=== PATIENT | male | born 1955 | race Caucasian/White ===

== ENCOUNTER 2017-12-16 08:21 | Inpatient (IN) | payer BC ==
[~2017-12-16] VITALS: Ht 177.8 cm; Wt 119.2 kg
[~2017-12-16 08:21] MED LIST: BACITRACIN 50,000 UNIT ONE; BUPIVACAINE/PF 0.5% ONE; EPINEPHRINE 1 MG/ML, 1ML ONE; THROMBIN 5,000 UNIT VIAL TP ONE
[2017-12-16 09:26] VITALS: BP 124/78
[2017-12-16] MEDS ORDERED: LACTATED RINGERS 1,000 ML IV SCH (09:30)
[2017-12-16] MEDS ORDERED: ESCI10TA10 PO (09:31)
[2017-12-16] MEDS ORDERED: FLONASE NAS (09:31)
[2017-12-16] MEDS ORDERED: MULTIVITAMIN PO (09:31)
[2017-12-16] MEDS ORDERED: METF500T4 PO (09:56)
[2017-12-16] MEDS ORDERED: FENTANYL PF 250 MCG/5ML ONE (10:09)
[2017-12-16] MEDS ORDERED: MIDAZOLAM 1 MG/ML, 2ML ONE (10:09)
[2017-12-16] MEDS ORDERED: OxyconTIN ER 20 MG TAB.ER ONE (10:09)
[2017-12-16] MEDS ORDERED: ONDANSETRON ODT 8 MG ONE (10:09)
[2017-12-16] MEDS ORDERED: GABAPENTIN 300 MG CAPSULE ONE (10:10)
[2017-12-16] MEDS ORDERED: ACETAMINOPHEN 500 MG TABLET ONE (10:10)
[2017-12-16] MEDS ORDERED: PROPOFOL 10 MG/ML, 20ML ONE (10:10)
[2017-12-16] MEDS ORDERED: WATER-INJECTION,STERILE 10 ML IV ONE (10:11)
[2017-12-16] MEDS ORDERED: CEFAZOLIN 1,000 MG ONE ×2 (10:11)
[2017-12-16] MEDS ORDERED: ACETAMINOPHEN 500 MG TABLET PO ONE (10:30)
[2017-12-16] MEDS ORDERED: OxyconTIN ER 20 MG TAB.ER PO ONE (10:30)
[2017-12-16] MEDS ORDERED: GABAPENTIN 300 MG CAPSULE PO ONE (10:30)
[2017-12-16] MEDS ORDERED: ONDANSETRON ODT 8 MG PO ONE (10:30)
[2017-12-16] MEDS ORDERED: ROCURONIUM 10MG/ML,5ML ONE (10:59)
[2017-12-16] MEDS ORDERED: DEXAMETHASONE 4 MG/ML, 1ML ONE ×2 (11:12)
[2017-12-16] MEDS ORDERED: PHENYLEPHRINE 10 MG/ML ONE (11:55)
[2017-12-16] MEDS ORDERED: OXYcodone 5 MG/5 ML ORAL.SOL UDC PO PRN (12:00)
[2017-12-16] MEDS ORDERED: hydrALAzine 20 MG/ML, 1ML IV PRN (12:00)
[2017-12-16] MEDS ORDERED: LABETALOL 5MG/ML, 20ML IV PRN ×2 (12:00→16:00)
[2017-12-16] MEDS ORDERED: morphine SULFATE 10 MG/ML, 1ML IV PRN ×2 (12:00→16:00)
[2017-12-16] MEDS ORDERED: PROMETHAZINE 25 MG/ML, 1ML IV PRN (12:00)
[2017-12-16] MEDS ORDERED: MEPERIDINE/PF 25MG/0.5ML IVPush PRN (12:00)
[2017-12-16] MEDS ORDERED: FENTANYL PF 100 MCG/2ML IV PRN (12:00)
[2017-12-16] MEDS ORDERED: MINERAL OIL 10 ML VIAL MC ONE (12:34)
[2017-12-16] MEDS ORDERED: METOCLOPRAMIDE 5 MG/ML, 2ML ONE (13:42)
[2017-12-16] MEDS ORDERED: HALOPERIDOL 5 MG/ML ONE (14:29)
[2017-12-16] MEDS ORDERED: ONDANSETRON 2MG/ML, 2ML IV PRN (16:00)
[2017-12-16] MEDS ORDERED: MAGNESIUM HYDROXIDE 8%, 30ML UDC PO PRN (16:00)
[2017-12-16] MEDS ORDERED: DIAZEPAM 5 MG/ML, 2ML IV PRN (16:00)
[2017-12-16] MEDS ORDERED: HYDROcodone/APAP 5/325 TABLET PO PRN (16:00)
[2017-12-16] MEDS ORDERED: DIPHENHYDRAMINE 50 MG/ML, 1ML IVPush PRN (16:00)
[2017-12-16] MEDS ORDERED: DIAZEPAM 5 MG TABLET PO PRN (16:00)
[2017-12-16] MEDS ORDERED: BISACODYL 10 MG SUPP PR PRN (16:00)
[2017-12-16] MEDS ORDERED: PROMETHAZINE 25 MG/ML, 1ML IM PRN (16:00)
[2017-12-16] MEDS ORDERED: METHOCARBAMOL 1,000 MG in DEXTROSE 5% 100 ML IV ONE (16:00)
[2017-12-16] MEDS: NS + 20MEQ KCL 1,000 ML IV SCH (16:54)
[2017-12-16] MEDS: metFORMIN 500 MG TABLET PO SCH (17:48)
[2017-12-16] MEDS: OXYcodone/APAP 5/325MG TABLET PO PRN ×2 (18:24→23:48)
[2017-12-16 19:13] VITALS: BP 121/61
[2017-12-16] MEDS: CEFAZOLIN PMX 1GM/50ML 50 ML IVPB SCH (19:40)
[2017-12-16] MEDS: METHOCARBAMOL 750 MG in DEXTROSE 5% 100 ML IV SCH (23:36)
[2017-12-16 23:45] VITALS: BP 120/69
[2017-12-17] MEDS: CEFAZOLIN PMX 1GM/50ML 50 ML IVPB SCH (03:58)
[2017-12-17 04:00] VITALS: BP 133/65
[2017-12-17] MEDS: NS + 20MEQ KCL 1,000 ML IV SCH (07:45)
[2017-12-17 08:07] VITALS: BP 135/80
[2017-12-17] MEDS: metFORMIN 500 MG TABLET PO SCH (08:08)
[2017-12-17] MEDS: METHOCARBAMOL 750 MG in DEXTROSE 5% 100 ML IV SCH (08:25)
[2017-12-17] MEDS: OXYcodone/APAP 5/325MG TABLET PO PRN ×2 (08:26→12:22)
[2017-12-17] MEDS ORDERED: CITALOPRAM 20 MG TABLET PO SCH (09:00)
[2017-12-17] MEDS ORDERED: MULTIVITAMIN 1 TABLET PO SCH (09:00)
[2017-12-17] MEDS ORDERED: FLUTICASONE NASAL SPRAY 16GM NAS SCH (09:00)
[2017-12-17] MEDS ORDERED: SENNA/DOCUSATE TABLET PO SCH (09:00)
[2017-12-17 12:00] VITALS: BP 127/70
[2017-12-17] MEDS ORDERED: METH750T87 PO (12:21)
[2017-12-17] MEDS ORDERED: SENN-31 PO (12:22)
[2017-12-17] MEDS ORDERED: BISA10SU54 PR (12:22)
[2017-12-17] MEDS ORDERED: MAGN400O7 PO (12:23)
[2017-12-17] MEDS ORDERED: OXYC-302 PO (12:24)
[2017-12-19] MEDS ORDERED: METHOCARBAMOL 750 MG TABLET PO SCH
== END 2017-12-17 12:50 | disposition home or self-care (01) | DRG 30 ==
LOC: OUT 08:21 → 4NOR 15:26 → OUT 15:27 → 4NOR 15:28 → DCLOUNGE 12-17 12:28
PROVIDERS: ADMIT Neurological Surgery; ATTEND Neurological Surgery
PROC: 0RB30ZZ Excision of Cervical Vertebral Disc, Open Approach (ICD-10-PCS; 2017-12-16)
PROC: 0RG20A0 Fusion of 2 or more Cervical Vertebral Joints with Interbody Fusion Device, Anterior Approach, Anterior Column, Open Approach (ICD-10-PCS; principal; 2017-12-16 11:00)
DX: M54.12 Radiculopathy, cervical region (principal); E11.9 Type 2 diabetes mellitus without complications; E78.00 Pure hypercholesterolemia, unspecified; I10 Essential (primary) hypertension; J45.909 Unspecified asthma, uncomplicated; G47.30 Sleep apnea, unspecified; Z82.61 Family history of arthritis; Z80.9 Family history of malignant neoplasm, unspecified; Z80.6 Family history of leukemia; Z83.3 Family history of diabetes mellitus
CPT/HCPCS: 36415; 72040; 82962; 86850; 86900; J0171; J0690; J1100; J2250; J2704; J3010; J3480; J3490; Q0162; J2370; J2765; J2800; J7120